=== PATIENT | female | born 1990 | race African-American/Black ===

== ENCOUNTER 2020-12-04 21:13 | Emergency (ER) | payer MEDICAID ==
[~2020-12-04] VITALS: Ht 152.4 cm; Wt 72.6 kg
[2020-12-04 21:25] VITALS: BP 185/120
--- NOTE | 2020-12-04 21:25 | NUR ---
TO BED AMBULATORY
--- NOTE | 2020-12-04 21:30 | NUR ---
RECEIVED IN BED 7 WITH C/O RIGHT KNEE PAIN S/P FALL YESTERDAY ON CONCRETE. RIGHT KNEE WITH GOLF BALL SIZED ABRASION WITH SCAB. PT STATES PAIN IS 10/10. PMH : HTN NKDA
[2020-12-04] MEDS ORDERED: BACITRACIN OINT 500 UNITS/GM PKT TP ONE (21:40)
--- NOTE | 2020-12-04 22:01 | NUR ---
PT RETURN FROM RAD
--- NOTE | 2020-12-04 22:35 | NUR ---
WOUND DRESSING DONE.
[2020-12-04] MEDS ORDERED: IBUP-2809 PO (22:54)
[2020-12-04] MEDS ORDERED: BACI1PAC6 TP (22:54)
[2020-12-04 23:02] VITALS: BP 185/120
--- NOTE | 2020-12-04 23:02 | NUR ---
Patient discharged with v/s stable. Written and verbal after care instructions given and explained. Patient verbalized understanding. Ambulatory with steady gait. All questions addressed prior to discharge. Advised to follow up with PMD.
== END 2020-12-04 23:02 | disposition home or self-care (01) ==
LOC: MED 21:13
DX: S80.211A Abrasion, right knee, initial encounter (principal); M25.562 Pain in left knee; Z79.899 Other long term (current) drug therapy; W19.XXXA Unspecified fall, initial encounter; Y93.01 Activity, walking, marching and hiking; Y92.89 Other specified places as the place of occurrence of the external cause; Y99.8 Other external cause status
CPT/HCPCS: 73562; 99283

== ENCOUNTER 2022-12-12 19:21 | Emergency (ER) | payer MEDICAID ==
[~2022-12-12] VITALS: Ht 162.6 cm; Wt 79.6 kg
[~2022-12-12 19:21] MED LIST: BACI-416 TP; IBUP-2809 PO
[2022-12-12 19:40] VITALS: BP 175/121
--- NOTE | 2022-12-12 21:00 | NUR ---
BERKLEY Forbes examining patient.
[2022-12-12] MEDS ORDERED: KETOROLAC 30 MG/ML VIAL IM ONE (21:15)
[2022-12-12] MEDS ORDERED: HYDROcodone/APAP 5/325 MG 1 TAB TAB PO ONE (21:15)
[2022-12-12] MEDS ORDERED: NAPR-54 PO (21:27)
[2022-12-12 21:45] VITALS: BP 175/121
== END 2022-12-12 21:45 | disposition home or self-care (01) ==
LOC: MED 19:21
DX: S66.912A Strain of unspecified muscle, fascia and tendon at wrist and hand level, left hand, initial encounter (principal); I10 Essential (primary) hypertension; Z79.899 Other long term (current) drug therapy; X58.XXXA Exposure to other specified factors, initial encounter; Y93.89 Activity, other specified; Y92.89 Other specified places as the place of occurrence of the external cause; Y99.8 Other external cause status
CPT/HCPCS: 96372; 99283; J1885

== ENCOUNTER 2024-05-09 13:51 | Emergency (ER) | payer SELFPAY ==
[~2024-05-09] VITALS: Ht 154.9 cm; Wt 81.6 kg
[~2024-05-09 13:51] MED LIST changes: -BACI-416 TP; +BACI-418 TP; +NAPR-337 PO
[2024-05-09 14:03] VITALS: BP 152/108; PULSE 105; RESP 19; TEMP 97.8; O2SAT 95
[2024-05-09] MEDS: KETOROLAC 30 MG/ML VIAL IM ONE (14:47)
[2024-05-09] MEDS ORDERED: ACET-8905 PO (16:01)
[2024-05-09] MEDS ORDERED: NAPR-337 PO (16:01)
[2024-05-09] MEDS ORDERED: ALBU0.0912 IH (16:01)
[2024-05-09 16:12] VITALS: BP 152/108; PULSE 105; RESP 19; TEMP 97.8; O2SAT 95
== END 2024-05-09 16:12 | disposition home or self-care (01) ==
LOC: MED 13:51
DX: S83.92XA Sprain of unspecified site of left knee, initial encounter (principal); M17.12 Unilateral primary osteoarthritis, left knee; I10 Essential (primary) hypertension; Z79.899 Other long term (current) drug therapy; X58.XXXA Exposure to other specified factors, initial encounter; Y93.89 Activity, other specified; Y92.89 Other specified places as the place of occurrence of the external cause; Y99.8 Other external cause status
CPT/HCPCS: 73562; 81025; 96372; 99283; J1885